=== PATIENT | male | born 1990 | race Caucasian/White ===

== ENCOUNTER 2018-07-11 17:33 | Emergency (ER) | payer MEDICAID ==
[~2018-07-11] VITALS: Ht 170.2 cm; Wt 66.2 kg
[2018-07-11 17:37] VITALS: BP 100/70
== END 2018-07-11 19:36 | disposition left against medical advice (07) ==
LOC: EDBD 17:33 → ED 19:30
DX: R10.30 Lower abdominal pain, unspecified (principal); Z53.21 Procedure and treatment not carried out due to patient leaving prior to being seen by health care provider